=== PATIENT | male | born 1960 | race Caucasian/White ===

== ENCOUNTER 2016-04-05 20:42 | Emergency (ER) | payer SELFPAY ==
[~2016-04-05] VITALS: Ht 185.4 cm; Wt 90.7 kg
[~2016-04-05 20:42] MED LIST: HYDR25TA4 PO; LOSA50TA21 PO
[2016-04-05 20:51] VITALS: BP 133/81
== END 2016-04-05 23:00 | disposition home or self-care (01) ==
LOC: ER 20:47
DX: M54.30 Sciatica, unspecified side (principal); I10 Essential (primary) hypertension; Z98.890 Other specified postprocedural states
CPT/HCPCS: A4606; Z7610

== ENCOUNTER 2016-11-06 14:44 | Emergency (ER) | payer MEDICAID ==
[~2016-11-06] VITALS: Ht 185.4 cm; Wt 90.7 kg
[2016-11-06 14:44] VITALS: BP 138/91
== END 2016-11-06 15:56 | disposition home or self-care (01) ==
LOC: ER 14:47
DX: G56.01 Carpal tunnel syndrome, right upper limb (principal); I10 Essential (primary) hypertension
CPT/HCPCS: 29125; 99283; A4606; Z7610

== ENCOUNTER 2016-11-07 19:07 | Emergency (ER) | payer MEDICAID ==
[~2016-11-07] VITALS: Ht 177.8 cm; Wt 81.6 kg
[2016-11-07 19:36] VITALS: BP 149/76
== END 2016-11-07 20:17 | disposition home or self-care (01) ==
LOC: ER 19:08
DX: M79.644 Pain in right finger(s) (principal); G62.9 Polyneuropathy, unspecified; I10 Essential (primary) hypertension; G56.00 Carpal tunnel syndrome, unspecified upper limb
CPT/HCPCS: A4606; Z7610

== ENCOUNTER 2017-01-14 17:17 | Emergency (ER) | payer SELFPAY ==
[~2017-01-14] VITALS: Ht 185.4 cm; Wt 93.0 kg
[2017-01-14 17:27] VITALS: BP 122/83
== END 2017-01-14 17:52 | disposition home or self-care (01) ==
LOC: ER 17:20
DX: G56.02 Carpal tunnel syndrome, left upper limb (principal); I10 Essential (primary) hypertension; Z98.890 Other specified postprocedural states
CPT/HCPCS: A4606; Z7610

== ENCOUNTER 2017-02-28 18:20 | Emergency (ER) | payer SELFPAY ==
[~2017-02-28] VITALS: Ht 185.4 cm; Wt 89.4 kg
[2017-02-28 18:26] VITALS: BP 111/60
[2017-02-28] MEDS ORDERED: HYDROCODONE/APAP 5/325MG 1 EACH TABLET ONE (18:51)
--- NOTE | 2017-02-28 18:54 | NUR ---
XRAY AT BS. PT MEDICATED ORDERED.
[2017-02-28] MEDS ORDERED: HYDROCODONE/APAP 5/325MG 1 EACH TABLET PO ONE (19:00)
== END 2017-02-28 20:19 | disposition home or self-care (01) ==
LOC: ER 18:22
DX: H60.91 Unspecified otitis externa, right ear (principal); M79.641 Pain in right hand; G56.02 Carpal tunnel syndrome, left upper limb; I10 Essential (primary) hypertension
CPT/HCPCS: 73130; 99284; A4606; Z7610

== ENCOUNTER 2017-04-16 15:52 | Emergency (ER) | payer MEDICAID ==
[~2017-04-16] VITALS: Ht 185.4 cm; Wt 91.6 kg
[2017-04-16 16:08] VITALS: BP 145/89
== END 2017-04-16 17:06 | disposition home or self-care (01) ==
LOC: ER 15:53
DX: H61.21 Impacted cerumen, right ear (principal); H92.01 Otalgia, right ear; G56.00 Carpal tunnel syndrome, unspecified upper limb; I10 Essential (primary) hypertension; K21.9 Gastro-esophageal reflux disease without esophagitis
CPT/HCPCS: 99281; A4606; Z7610; Z7502

== ENCOUNTER 2017-07-29 09:40 | Emergency (ER) | payer MEDICAID, OTHER ==
[~2017-07-29] VITALS: Ht 185.4 cm; Wt 89.8 kg
[2017-07-29 09:40] VITALS: BP 135/86
== END 2017-07-29 10:21 | disposition home or self-care (01) ==
LOC: ER 09:41
DX: S81.801A Unspecified open wound, right lower leg, initial encounter (principal); B95.8 Unspecified staphylococcus as the cause of diseases classified elsewhere; I10 Essential (primary) hypertension; K21.9 Gastro-esophageal reflux disease without esophagitis; G56.00 Carpal tunnel syndrome, unspecified upper limb; Z98.890 Other specified postprocedural states; X58.XXXA Exposure to other specified factors, initial encounter; Y93.89 Activity, other specified; Y92.89 Other specified places as the place of occurrence of the external cause; Y99.8 Other external cause status
CPT/HCPCS: A4606; Z7610

== ENCOUNTER 2017-09-09 15:50 | Emergency (ER) | payer OTHER ==
[~2017-09-09] VITALS: Ht 180.3 cm; Wt 81.6 kg
[2017-09-09 15:54] VITALS: BP 148/74
[2017-09-09] MEDS ORDERED: HYDROCODONE/APAP 5/325MG 1 EACH TABLET ONE (16:22)
[2017-09-09] MEDS ORDERED: HYDROCODONE/APAP 5/325MG 1 EACH TABLET PO ONE (16:30)
== END 2017-09-09 17:50 | disposition home or self-care (01) ==
LOC: ER 15:52
DX: S81.801A Unspecified open wound, right lower leg, initial encounter (principal); M25.521 Pain in right elbow; K21.9 Gastro-esophageal reflux disease without esophagitis; I10 Essential (primary) hypertension; X58.XXXA Exposure to other specified factors, initial encounter; Y93.89 Activity, other specified; Y92.89 Other specified places as the place of occurrence of the external cause; Y99.8 Other external cause status
CPT/HCPCS: 73080; 99284; A4606; A6402; Z7610